=== PATIENT | female | born 1950 | race Caucasian/White ===

== ENCOUNTER 2017-09-14 11:02 | Inpatient (IN) | payer MEDICARE, MEDICAID ==
[2017-09-14] MEDS ORDERED: Albuterol 0.083% 2.5 MG/3 ML Neb Soln NEB ONE (11:37)
[2017-09-14] MEDS ORDERED: Acetaminophen 325 MG Tab PO ONE (11:37)
--- NOTE | 2017-09-14 11:39 | EDM.PDOC ---
ED HPI GENERAL MEDICAL PROBLEM - General Chief Complaint: Respiratory Problem Stated Complaint: FEVER/RESPIRATORY Time Seen by Provider: 09/14/17 11:25 Source of Information: Reports: Patient, Other ( clinic records. ) History Limitations: Reports: No Limitations - History of Present Illness INITIAL COMMENTS - FREE TEXT/NARRATIVE: pt arrived with a fever and sob. She has been ill since ur nite. Onset: Gradual, Other ( started thur nite. ) Duration: Hour(s):, Getting Worse Location: Reports: Chest, Other ( chest is congested and feels tight. ) Associated Symptoms: Reports: Cough, Fever/Chills, Shortness of Breath - Related Data Allergies Allergy/AdvReac Type Severity Reaction Status Date / Time No Known Allergies Allergy Verified 10/15/14 13:01 Home Meds: Home Meds Brimonidine/Timolol [Combigan 0.2%/0.5% Ophth Soln] 09/14/17 [History] Latanoprost [Latanoprost] 09/14/17 [History] Levothyroxine Sodium [Levoxyl] 09/14/17 [History] Past Medical History Endocrine/Metabolic History: Reports: Hypothyroidism Social & Family History - Tobacco Use Smoking Status *Q: Former Smoker Used Tobacco, but Quit: Yes Month Tobacco Last Used: september ED ROS GENERAL - Review of Systems Review Of Systems: See Below Constitutional: Reports: Fever, Chills, Malaise, Weakness, Decreased Appetite HEENT: Reports: No Symptoms Respiratory: Reports: Shortness of Breath, Wheezing, Cough, Other (02 sats at the clinic were 76) Cardiovascular: Reports: No Symptoms Endocrine: Reports: No Symptoms GI/Abdominal: Reports: No Symptoms : Reports: No Symptoms Musculoskeletal: Reports: No Symptoms Skin: Reports: No Symptoms ED EXAM, GENERAL - Physical Exam Exam: See Below Free Text/Narrative:: pt arrived with a history of low o2 sats at the clinic. She is coughing and feels tight in her chest. She is not raising much sputum. Exam Limited By: No Limitations General Appearance: Alert, Moderate Distress Ears: Normal TMs Nose: Normal Inspection Throat/Mouth: Normal Inspection Head: Atraumatic Neck: Normal Inspection Respiratory/Chest: Decreased Breath Sounds, Crackles, Wheezing Cardiovascular: Regular Rate, Rhythm GI/Abdominal: Soft, Non-Tender (Female) Exam: Deferred Rectal (Female) Exam: Deferred Back Exam: Normal Inspection Extremities: Normal Inspection Neurological: Alert, Oriented, Normal Cognition Psychiatric: Depressed Mood Skin Exam: Warm Course - Vital Signs Last Recorded V/S: Last Vital Signs Temp 37.8 C 09/14/17 11:19 Pulse 71 09/14/17 11:19 Resp 15 09/14/17 11:19 BP 159/56 H 09/14/17 11:19 Pulse Ox 93 L 09/14/17 11:19 - Orders/Labs/Meds Orders: Active Orders 24 hr Category Date Time Status RT Aerosol Therapy [RC] ASDIRECTED Care 09/14/17 11:38 Active Chest 2V [CR] Stat Exams 09/14/17 11:35 Ordered COMPREHENSIVE METABOLIC PN,CMP [CHEM] Urgent Lab 09/14/17 11:26 Received LACTIC ACID [CHEM] Stat Lab 09/14/17 11:44 Ordered TSH ULTRASENSITIVE [CHEM] Stat Lab 09/14/17 11:27 Ordered Labs: Laboratory Tests 09/14/17 Range/Units 11:26 WBC 10.9 (4.5-11.0) K/uL RBC 4.91 (3.30-5.50) M/uL Hgb 14.6 (12.0-15.0) g/dL Hct 44.6 (36.0-48.0) % MCV 91 (80-98) fL MCH 30 (27-31) pg MCHC 33 (32-36) % Plt Count 188 (150-400) K/uL Neut % (Auto) 87 H (36-66) % Lymph % (Auto) 4 L (24-44) % Potter % (Auto) 8 H (2-6) % Eos % (Auto) 0 L (2-4) % Baso % (Auto) 1 (0-1) % Meds: Medications Discontinued Medications Generic Name Dose Route Start Last Admin Trade Name Freq PRN Reason Stop Dose Admin Acetaminophen 650 mg 09/14/17 11:37 Tylenol PO 09/14/17 11:38 NOW ONE Albuterol 2.5 mg 09/14/17 11:37 Proventil Neb Soln NEB 09/14/17 11:38 ONETIME ONE Oseltamivir Phosphate 75 mg 09/14/17 11:51 Tamiflu PO 09/14/17 11:52 ONETIME ONE - Re-Assessments/Exams Free Text/Narrative Re-Assessment/Exam: 09/14/17 12:02 chest xray reveal a marked kyphosis nd she has a infiltate in the rt lower lung field. Sh has a fever. Her wbc is not markedly elevated. Her influ a is positive. Pt was given a albuterol neb and fluids were started at 999. Departure - Departure Time of Disposition: 12:05 Disposition: Admitted As Inpatient 68 Condition: Fair Clinical Impression: Right lower lobe pneumonia, Influenza A, Dehydration - Discharge Information Referrals: Candelaria Stanford PA [Primary Care Provider] - Forms: ED Department Discharge Care Plan Goals: admit to Dr louise. - My Orders Last 24 Hours: My Active Orders 09/14/17 11:26 COMPREHENSIVE METABOLIC PN,CMP [CHEM] Urgent 09/14/17 11:27 TSH ULTRASENSITIVE [CHEM] Stat 09/14/17 11:35 Chest 2V [CR] Stat 09/14/17 11:38 RT Aerosol Therapy [RC] ASDIRECTED 09/14/17 11:44 LACTIC ACID [CHEM] Stat - Assessment/Plan Last 24 Hours: My Active Orders 09/14/17 11:26 COMPREHENSIVE METABOLIC PN,CMP [CHEM] Urgent 09/14/17 11:27 TSH ULTRASENSITIVE [CHEM] Stat 09/14/17 11:35 Chest 2V [CR] Stat 09/14/17 11:38 RT Aerosol Therapy [RC] ASDIRECTED 09/14/17 11:44 LACTIC ACID [CHEM] Stat
[2017-09-14] MEDS ORDERED: Oseltamivir 75 MG Cap PO ONE (11:51)
[2017-09-14] MEDS ORDERED: Sodium Chloride 0.9% 1,000 ML IV SCH (12:00)
[2017-09-14] MEDS ORDERED: methylPREDNISolone Sodium Succinate 125 MG/2 ML SDV IVPUSH ONE (12:43)
--- NOTE | 2017-09-14 12:57 | PCM.HP ---
H&P History of Present Illness - General Date of Service: 09/14/17 Admit Problem/Dx: Admission Diagnosis/Problem Admission Diagnosis/Problem Influenza due to influenza A virus Source of Information: Patient, Family, Provider History Limitations: Reports: No Limitations - History of Present Illness Initial Comments - Free Text/Narative: Marisel presents to the emergency room today with 2 days of progressive cough, fever and shortness of breath. Cough has been mostly nonproductive. She is short of breath with even minimal activity at this time. She has not measured any fevers at home but has felt warm. She has a runny nose but no sore throat. She has diffuse myalgias and arthralgias. Some pleuritic type chest pain with coughing as well as some nausea but no vomiting. She has too sick contacts with very similar symptoms but they have not been tested for influenza. No orthopnea or lower extremity edema. She quit smoking 2 weeks ago. Appetite is decreased but fluid intake has been stable. Workup in the emergency room was initiated after she presented to the walk-in clinic, was found to have oxygen saturations in the mid 70s and was sent to the emergency room. She is found to have hypoxic respiratory failure as well as influenza. She will be admitted for further management. - Related Data Allergies/Adverse Reactions: Allergies Allergy/AdvReac Type Severity Reaction Status Date / Time No Known Allergies Allergy Verified 10/15/14 13:01 Home Medications: Home Meds Brimonidine/Timolol [Combigan 0.2%/0.5% Ophth Soln] 1 drop EYEBOTH BID 09/14/17 [History] Latanoprost [Latanoprost] 2 drop EYEBOTH BEDTIME 09/14/17 [History] Levothyroxine Sodium [Levoxyl] 1 tab PO DAILY 09/14/17 [History] Past Medical History Endocrine/Metabolic History: Reports: Hypothyroidism Social & Family History - Family History Cardiac: Reports: CAD (mother) Respiratory: Reports: COPD (father) - Tobacco Use Smoking Status *Q: Former Smoker Used Tobacco, but Quit: Yes Month Tobacco Last Used: september - Alcohol Use Alcohol Use History: No - Recreational Drug Use Recreational Drug Use: No Drug Use in Last 12 Months: No H&P Review of Systems - Review of Systems: Review Of Systems: See Below Free Text/Narrative: A complete 12 point review of systems was obtained. Pertinent positives and negatives are noted in the history of present illness. All other systems were reviewed and were negative except as noted. Exam - Exam Exam: See Below - Vital Signs Vital Signs: Last Vital Signs Temp 37.8 C 09/14/17 11:54 Pulse 71 09/14/17 11:19 Resp 15 09/14/17 11:19 BP 159/56 H 09/14/17 11:19 Pulse Ox 93 L 09/14/17 11:19 Weight: 57.153 kg - Exam Quality Assessment: Supplemental Oxygen General: Alert, Oriented, Cooperative, Mild Distress HEENT: Conjunctiva Clear. No: Mucosa Moist & [place] (dry), Scleral Icterus Neck: Supple, Trachea Midline. No: Lymphadenopathy, JVD Lungs: Rhonchi (diffuse rhonchi teresa right side). No: Normal Respiratory Effort (increased work of breathing), Wheezing Cardiovascular: Regular Rhythm, Tachycardia, Systolic Murmur GI/Abdominal Exam: Normal Bowel Sounds, Soft, Non-Tender, No Distention Back Exam: Normal Inspection, Full Range of Motion Extremities: No Pedal Edema. No: Increased Warmth Peripheral Pulses: 2+: Dorsalis Pedis (L), Dorsalis Pedis (R) Skin: Warm, Dry Neuro Extensive - Mental Status: Alert, Oriented x3, Nl Response to Commands Neuro Extensive - Motor, Sensory, Reflexes: CN II-XII Intact. No: Dysarthria, Abnormal Motor, Tremor Psychiatric: Alert, Normal Affect - Patient Data Lab Results Last 24 hrs: Laboratory Results - last 24 hr 09/14/17 09/14/17 09/14/17 Range/Units 11:26 11:26 11:27 WBC 10.9 (4.5-11.0) K/uL RBC 4.91 (3.30-5.50) M/uL Hgb 14.6 (12.0-15.0) g/dL Hct 44.6 (36.0-48.0) % MCV 91 (80-98) fL MCH 30 (27-31) pg MCHC 33 (32-36) % Plt Count 188 (150-400) K/uL Neut % (Auto) 87 H (36-66) % Lymph % (Auto) 4 L (24-44) % Bowie % (Auto) 8 H (2-6) % Eos % (Auto) 0 L (2-4) % Baso % (Auto) 1 (0-1) % Sodium 135 L (140-148) mmol/L Potassium 4.7 (3.6-5.2) mmol/L Chloride 99 L (100-108) mmol/L Carbon Dioxide 30 (21-32) mmol/L Anion Gap 10.7 (5.0-14.0) mmol/L BUN 10 (7-18) mg/dL Creatinine 0.7 (0.6-1.0) mg/dL Est Cr Clr Drug Dosing 66.28 mL/min Estimated GFR (MDRD) > 60 (>60) Glucose 120 H (74-106) mg/dL Lactic Acid (0.4-2.0) mmol/L Calcium 9.2 (8.5-10.1) mg/dL Total Bilirubin 0.2 (0.2-1.0) mg/dL AST 44 H (15-37) U/L ALT 56 (12-78) U/L Alkaline Phosphatase 114 (46-116) U/L Total Protein 7.2 (6.4-8.2) g/dL Albumin 3.8 (3.4-5.0) g/dL Globulin 3.4 (2.3-3.5) g/dL Albumin/Globulin Ratio 1.1 L (1.2-2.2) TSH, Ultra Sensitive 0.212 L (0.358-3.740) uIU/mL 09/14/17 Range/Units 11:44 WBC (4.5-11.0) K/uL RBC (3.30-5.50) M/uL Hgb (12.0-15.0) g/dL Hct (36.0-48.0) % MCV (80-98) fL MCH (27-31) pg MCHC (32-36) % Plt Count (150-400) K/uL Neut % (Auto) (36-66) % Lymph % (Auto) (24-44) % Bowie % (Auto) (2-6) % Eos % (Auto) (2-4) % Baso % (Auto) (0-1) % Sodium (140-148) mmol/L Potassium (3.6-5.2) mmol/L Chloride (100-108) mmol/L Carbon Dioxide (21-32) mmol/L Anion Gap (5.0-14.0) mmol/L BUN (7-18) mg/dL Creatinine (0.6-1.0) mg/dL Est Cr Clr Drug Dosing mL/min Estimated GFR (MDRD) (>60) Glucose (74-106) mg/dL Lactic Acid 1.3 (0.4-2.0) mmol/L Calcium (8.5-10.1) mg/dL Total Bilirubin (0.2-1.0) mg/dL AST (15-37) U/L ALT (12-78) U/L Alkaline Phosphatase (46-116) U/L Total Protein (6.4-8.2) g/dL Albumin (3.4-5.0) g/dL Globulin (2.3-3.5) g/dL Albumin/Globulin Ratio (1.2-2.2) TSH, Ultra Sensitive (0.358-3.740) uIU/mL Result Diagrams: 09/14/17 11:26 09/14/17 11:26 Ney Results Last 24 hrs: Microbiology 09/14/17 11:25 Influenza Type A Antigen Screen - Final Nasal Aspirate, Left Positive Influenza A Ag Influenza Type B Antigen Screen - Final NEGATIVE INFLUENZA B VIRUS AG Imaging Impressions Last 24 hrs: CXR - images personally reviewed - there is subtle infiltrate in the right lower lung. Mild hyperinflation. Heart size is normal. No mass or effusion. *Q Meaningful Use (ADM) - VTE *Q VTE Criteria *Q: - VTE Risk Assess *Q Each Risk Factor Represents 1 Point: Serious lung disease including pneumonia, Abnormal Pulmonary Function (COPD) Total Score 1 Point Risk Factors: 2 Each Risk Factor Represents 2 Points: Age 60 - 74 Years Total Score 2 Point Risk Factors: 2 Each Risk Factor Represents 3 Points: None Total Score 3 Point Risk Factors: 0 Each Risk Factor Represents 5 Points: None Total Score 5 Point Risk Factors: 0 Venous Thromboembolism Risk Factor Score *Q: 4 - Stroke *Q Stroke Criteria *Q: - AMI *Q AMI Criteria *Q: - Problem List (1) Acute respiratory failure with hypoxia SNOMED Code(s): 63131644 ICD Code: J96.01 - ACUTE RESPIRATORY FAILURE WITH HYPOXIA Status: Acute Current Visit: Yes (2) Acquired hypothyroidism SNOMED Code(s): 457957470 ICD Code: E03.9 - HYPOTHYROIDISM, UNSPECIFIED Status: Acute Current Visit : Yes (3) Influenza A SNOMED Code(s): 044773613 ICD Code: J10.1 - FLU DUE TO OTH IDENT INFLUENZA VIRUS W OTH RESP MANIFEST Status: Acute Current Visit: Yes Problem List Initiated/Reviewed/Updated: Yes Orders Last 24hrs: Active Orders 24 hr Category Date Time Status Patient Status Manage Transfer [TRANSFER] Routine ADT 09/14/17 12:44 Ordered RT Aerosol Therapy [RC] ASDIRECTED Care 09/14/17 11:38 Active Chest 2V [CR] Stat Exams 09/14/17 11:35 Taken CULTURE BLOOD [BC] Urgent Lab 09/14/17 12:05 Received CULTURE BLOOD [BC] Urgent Lab 09/14/17 12:10 Received Sodium Chloride 0.9% [Normal Saline] 1,000 ml Med 09/14/17 12:00 Active IV ASDIRECTED Blood Culture x2 Reflex Set [OM.PC] Urgent Oth 09/14/17 11:57 Ordered Resuscitation Status Routine Resus Stat 09/14/17 12:45 Ordered Medication Orders Sodium Chloride (Normal Saline) 1,000 mls @ 999 mls/hr IV ASDIRECTED RENETTA Last Admin: 09/14/17 12:14 Dose: 999 mls/hr Assessment/Plan Comment:: ASSESSMENT AND PLAN - Acute influenza A with hypoxic respiratory failure - former smoker, no diagnosis of COPD but she does have some hyperinflation noted on chest x-ray. She has cough, shortness of breath as well as myalgias and positive influenza testing. Chest x-ray does show a subtle right lung infiltrate but I suspect influenza is the only pathogen at this time given short duration of symptoms. -Tamiflu -Steroids -Nebs -Supplement oxygen -Symptomatic management -Sputum culture -Consider antibiotics if fever curve does not improve Acquired hypothyroidism - TSH is mildly decreased at this time. -Check free T4 -Continue supplement History of tobacco dependence - patient reports smoking approximately 1/4 - 1/2 half pack daily for 40 years. Currently his nicotine patch. -Continue nicotine patch Maintenance issues - - DVT prophylaxis - mechanical - GI prophylaxis - not indicated - Nutrition - regular diet - Doshi catheter - not indicated CODE STATUS - full code Admission justification - This patient will be admitted for inpatient services and is medically appropriate meeting medical necessity for inpatient admission as outlined in my documentation. I reasonably expect the patient will require inpatient services that span a period time over 2 midnights. I reasonably expect this patient to be discharged or transferred within 96 hours [facility]. Disposition - anticipate discharge home after the hospital stay Primary care physician - Cyndy Renner M.D.
[2017-09-14] MEDS ORDERED: Ondansetron 4 MG Tab.DIS PO PRN (13:36)
[2017-09-14] MEDS ORDERED: Polyethylene Glycol 3350 Powder 17 GM Packet PO PRN (13:36)
[2017-09-14] MEDS ORDERED: Codeine/guaiFENesin 100mg-10 MG/5 ML Syrup 10 ML Cup PO PRN (13:36)
[2017-09-14] MEDS: Sodium Chloride 0.9% 1,000 ML IV SCH (14:29)
[2017-09-14] MEDS: Albuterol/Ipratropium 3.0-0.5 MG/3 ML Neb Soln NEB SCH ×2 (15:10→20:07)
[2017-09-14] MEDS ORDERED: methylPREDNISolone Sodium Succinate 125 MG/2 ML SDV IVPUSH SCH (20:00)
[2017-09-14] MEDS: Acetaminophen 325 MG Tab PO PRN (20:06)
[2017-09-14] MEDS: Benzonatate 100 MG Cap PO PRN (20:07)
[2017-09-14] MEDS: Oseltamivir 75 MG Cap PO SCH (20:08)
[2017-09-14] MEDS: Brimonidine 0.2% Ophth Soln 5 ML Bottle EYEBOTH SCH (20:08)
[2017-09-14] MEDS: Timolol Maleate 0.5% Ophth Soln 5 ML Bottle EYEBOTH SCH (20:08)
[2017-09-14] MEDS: Latanoprost 0.005% Ophth Soln 2.5 ML Bottle EYEBOTH SCH (20:09)
[2017-09-15] MEDS: Sodium Chloride 0.9% 1,000 ML IV SCH (03:13)
[2017-09-15] MEDS: Albuterol/Ipratropium 3.0-0.5 MG/3 ML Neb Soln NEB SCH ×4 (07:30→21:11)
[2017-09-15] MEDS: Levothyroxine 100 MCG Tab PO SCH ×2 (07:57→10:19)
--- NOTE | 2017-09-15 10:03 | PCM.PN ---
- General Info Date of Service: 09/15/17 Functional Status: Reports: Pain Controlled, Tolerating Diet - Review of Systems General: Reports: Fever, Weakness Pulmonary: Reports: Shortness of Breath, Cough Systems Review Comment:: No acute events overnight. Feeling a little better today but still has diffuse myalgias and harsh cough. Still requiring 3 L of supplemental oxygen but wheezing has improved some. Low-grade fevers overnight. White blood cell count is up a little from yesterday. No complaints of chest pain or nausea. - Patient Data Vitals - Most Recent: Last Vital Signs Temp 37.3 C 09/15/17 07:14 Pulse 68 09/15/17 07:30 Resp 18 09/15/17 07:14 BP 124/53 L 09/15/17 07:14 Pulse Ox 94 L 09/15/17 07:14 Weight - Most Recent: 57.153 kg I&O - Last 24 Hours: Intake & Output 09/14/17 09/15/17 09/15/17 22:59 06:59 14:59 Intake Total 332 1190 Output Total 700 Balance -368 1190 Lab Results Last 24 Hours: Laboratory Results - last 24 hr 09/14/17 09/15/17 09/15/17 Range/Units 15:20 05:20 05:20 WBC 14.1 H (4.5-11.0) K/uL RBC 4.40 (3.30-5.50) M/uL Hgb 12.7 (12.0-15.0) g/dL Hct 40.4 (36.0-48.0) % MCV 92 (80-98) fL MCH 29 (27-31) pg MCHC 31 L (32-36) % Plt Count 180 (150-400) K/uL Sodium 144 (140-148) mmol/L Potassium 4.9 (3.6-5.2) mmol/L Chloride 110 H (100-108) mmol/L Carbon Dioxide 30 (21-32) mmol/L Anion Gap 8.9 (5.0-14.0) mmol/L BUN 11 (7-18) mg/dL Creatinine 0.6 (0.6-1.0) mg/dL Est Cr Clr Drug Dosing 77.33 mL/min Estimated GFR (MDRD) > 60 (>60) Glucose 137 H (74-106) mg/dL Calcium 8.9 (8.5-10.1) mg/dL Free T4 1.29 (0.76-1.46) ng/dL Med Orders - Current: Current Medications Acetaminophen (Tylenol) 650 mg PO Q4H PRN PRN Reason: Pain (Mild 1-3)/fever Last Admin: 09/14/17 20:06 Dose: 650 mg Albuterol (Proventil Neb Soln) 2.5 mg NEB Q4H PRN PRN Reason: Shortness Of Breath/wheezing Albuterol/Ipratropium (Duoneb 3.0-0.5 Mg/3 Ml) 3 ml NEB QIDRT [facility] Last Admin: 09/15/17 07:30 Dose: 3 ml Benzonatate (Tessalon Perles) 100 mg PO TID PRN PRN Reason: Cough Last Admin: 09/14/17 20:07 Dose: 100 mg Guaifenesin/Codeine Phosphate (Robitussin Ac) 10 ml PO Q4H PRN PRN Reason: Cough Sodium Chloride (Normal Saline) 1,000 mls @ 75 mls/hr IV ASDIRECTED [facility] Last Admin: 09/15/17 03:13 Dose: 75 mls/hr Ibuprofen (Motrin) 600 mg PO Q6H PRN PRN Reason: Pain/Fever Latanoprost (Xalatan 0.005% Ophth Soln) 0 ml EYEBOTH BEDTIME [facility] Last Admin: 09/14/17 20:09 Dose: 1 drop Levothyroxine Sodium (Synthroid) 100 mcg PO ACBREAKFAST [facility] Last Admin: 09/15/17 07:57 Dose: 100 mcg Nicotine (Habitrol) 14 mg TRDERM DAILY [facility] Ondansetron HCl (Zofran Odt) 4 mg PO Q6H PRN PRN Reason: Nausea able to take PO Oseltamivir Phosphate (Tamiflu) 75 mg PO BID [facility] Stop: 09/18/17 21:01 Last Admin: 09/14/17 20:08 Dose: 75 mg Polyethylene Glycol (Miralax) 17 gm PO DAILY PRN PRN Reason: Constipation [facility]) [facility] Discontinued Medications Acetaminophen (Tylenol) 650 mg PO NOW ONE Stop: 09/14/17 11:38 Last Admin: 09/14/17 11:54 Dose: 650 mg Albuterol (Proventil Neb Soln) 2.5 mg NEB ONETIME ONE Stop: 09/14/17 11:38 Last Admin: 09/14/17 11:54 Dose: 2.5 mg Brimonidine Tartrate (Alphagan 0.2% Ophth Soln) 0 ml EYEBOTH BID [facility] Last Admin: 09/14/17 20:08 Dose: Not Given Sodium Chloride (Normal Saline) 1,000 mls @ 999 mls/hr IV ASDIRECTED [facility] Last Admin: 09/14/17 12:14 Dose: 999 mls/hr Methylprednisolone Sodium Succinate (Solu-Medrol) 125 mg IVPUSH ONETIME ONE Stop: 09/14/17 12:44 Last Admin: 09/14/17 12:57 Dose: 125 mg Methylprednisolone Sodium Succinate (Solu-Medrol) 62.5 mg IVPUSH Q8H [facility] Stop: 09/14/17 20:01 Last Admin: 09/14/17 20:09 Dose: 62.5 mg Oseltamivir Phosphate (Tamiflu) 75 mg PO ONETIME ONE Stop: 09/14/17 11:52 Last Admin: 09/14/17 11:56 Dose: 75 mg Timolol Maleate (Timoptic 0.5% Ophth Soln) 0 ml EYEBOTH BID [facility] Last Admin: 09/14/17 20:08 Dose: Not Given - Exam Quality Assessment: Supplemental Oxygen General: Alert, Oriented, Cooperative, No Acute Distress Neck: Supple Lungs: Normal Respiratory Effort, Crackles (diffuse both upper and lower lung tapia ). No: Wheezing GI/Abdominal Exam: Soft, No Distention Extremities: No Pedal Edema Psy/Mental Status: Alert, Normal Affect - Problem List & Annotations (1) Acute respiratory failure with hypoxia SNOMED Code(s): 30625703 Code(s): J96.01 - ACUTE RESPIRATORY FAILURE WITH HYPOXIA Status: Acute Current Visit: Yes (2) Acquired hypothyroidism SNOMED Code(s): 653088137 Code(s): E03.9 - HYPOTHYROIDISM, UNSPECIFIED Status: Acute Current Visit : Yes (3) Influenza A SNOMED Code(s): 623455720 Code(s): J10.1 - FLU DUE TO OTH IDENT INFLUENZA VIRUS W OTH RESP MANIFEST Status: Acute Current Visit: Yes - Problem List Review Problem List Initiated/Reviewed/Updated: Yes - My Orders Last 24 Hours: My Active Orders 09/14/17 12:45 Resuscitation Status Routine 09/14/17 13:36 Patient Status [ADT] Routine Notify Provider Vital Signs [RC] ASDIRECTED Oxygen Therapy [RC] PRN RT Aerosol Therapy [RC] ASDIRECTED Up ad Tisha [RC] ASDIRECTED VTE/DVT Education [RC] Per Unit Routine Vital Signs [RC] Q4H CULTURE RESPIRATORY + SMEAR [RM] Routine Acetaminophen [Tylenol] 650 mg PO Q4H PRN Albuterol [Proventil Neb Soln] 2.5 mg NEB Q4H PRN Benzonatate [Tessalon Perles] 100 mg PO TID PRN Codeine/guaiFENesin [Robitussin AC] 10 ml PO Q4H PRN Ibuprofen [Motrin] 600 mg PO Q6H PRN Ondansetron [Zofran ODT] 4 mg PO Q6H PRN Polyethylene Glycol 3350 [MiraLAX] 17 gm PO DAILY PRN Sodium Chloride 0.9% [Normal Saline] 1,000 ml IV ASDIRECTED Sequential Compression Device [OM.PC] Per Unit Routine 09/14/17 16:00 Albuterol/Ipratropium [DuoNeb 3.0-0.5 MG/3 ML] 3 ml NEB QIDRT 09/14/17 21:00 Latanoprost [Xalatan 0.005% Ophth Soln] 0 ml EYEBOTH BEDTIME Oseltamivir [Tamiflu] 75 mg PO BID 09/14/17 Dinner Regular Diet [DIET] 09/15/17 09:00 Levothyroxine [Synthroid] 100 mcg PO ACBREAKFAST Nicotine [Habitrol] 14 mg TRDERM DAILY 09/15/17 10:01 Convert IV to Saline Lock [OM.PC] Routine 09/15/17 20:00 predniSONE 20 mg PO BIDAC 09/16/17 05:00 CBC W/O DIFF,HEMOGRAM [HEME] Timed (1) - Plan Plan:: ASSESSMENT AND PLAN - Acute influenza A with hypoxic respiratory failure - former smoker, no diagnosis of COPD but she does have some hyperinflation noted on chest x-ray. Still significant symptoms and ongoing supplemental oxygen requirement. Fever curve has improved since admission. Right lung infiltrate was noted at the time of admission but I suspect this is related to influenza. -Tamiflu -Steroids -Nebs -Supplement oxygen -Symptomatic management -Sputum culture if able -Consider antibiotics if fever curve does not improve Acquired hypothyroidism - TSH is mildly decreased at this time but T4 is normal. -Continue supplement History of tobacco dependence - patient reports smoking approximately 1/4 - 1/2 half pack daily for 40 years. Currently using nicotine patch. -Continue nicotine patch Maintenance issues - - DVT prophylaxis - mechanical - GI prophylaxis - not indicated - Nutrition - regular diet Disposition - anticipate discharge home after the hospital stay Primary care physician - Cyndy Renner M.D.
[2017-09-15] MEDS: Oseltamivir 75 MG Cap PO SCH ×2 (10:19→21:11)
[2017-09-15] MEDS: Nicotine 14 MG/24 Hr Patch TRDERM SCH (10:19)
[2017-09-15] MEDS: Benzonatate 100 MG Cap PO PRN ×2 (10:22→19:26)
[2017-09-15] MEDS: Ibuprofen 600 MG Tab PO PRN (10:22)
[2017-09-15] MEDS: Brimonidine 0.2% Ophth Soln 5 ML Bottle EYEBOTH SCH (10:56)
[2017-09-15] MEDS: Timolol Maleate 0.5% Ophth Soln 5 ML Bottle EYEBOTH SCH (10:56)
[2017-09-15] MEDS: Acetaminophen 325 MG Tab PO PRN (19:30)
[2017-09-15] MEDS: predniSONE 20 MG Tab PO SCH (21:11)
[2017-09-15] MEDS: Latanoprost 0.005% Ophth Soln 2.5 ML Bottle EYEBOTH SCH (21:11)
[2017-09-15] MEDS: COMBIGAN EYEBOTH SCH (23:51)
[2017-09-15] MEDS: OPTH EYEBOTH SCH (23:51)
[2017-09-16] MEDS: Benzonatate 100 MG Cap PO PRN ×4 (03:04→21:22)
[2017-09-16] MEDS: Albuterol 0.083% 2.5 MG/3 ML Neb Soln NEB PRN (03:04)
[2017-09-16] MEDS: Albuterol/Ipratropium 3.0-0.5 MG/3 ML Neb Soln NEB SCH ×4 (07:29→20:50)
[2017-09-16] MEDS: Oseltamivir 75 MG Cap PO SCH ×2 (08:17→20:50)
[2017-09-16] MEDS: predniSONE 20 MG Tab PO SCH ×2 (08:18→17:43)
[2017-09-16] MEDS: Nicotine 14 MG/24 Hr Patch TRDERM SCH (08:19)
[2017-09-16] MEDS: Levothyroxine 100 MCG Tab PO SCH (08:24)
[2017-09-16] MEDS: COMBIGAN EYEBOTH SCH ×2 (08:26→20:52)
[2017-09-16] MEDS: OPTH EYEBOTH SCH ×2 (08:26→20:52)
[2017-09-16] MEDS: Ibuprofen 600 MG Tab PO PRN ×2 (09:22→15:32)
--- NOTE | 2017-09-16 10:00 | CR ---
CHEST, 2 VIEW Clinical history: Shortness of breath Comparison: None Findings: Patient has a moderate thoracic dextroscoliosis. Heart and pulmonary vasculature appear nor mal. No infiltrate effusion or pneumothorax is seen. Lungs are hyperaerated. There is a moderate left first rib deformity related to the scoliosis. Impression: No acute cardiopulmonary process Hyperaeration
[2017-09-16] MEDS: Acetaminophen 325 MG Tab PO PRN (11:50)
--- NOTE | 2017-09-16 14:01 | PCM.PN ---
- General Info Date of Service: 09/16/17 Subjective Update: Ms. Nunez is a 67-year-old woman admitted through the emergency department with weakness and cough and shortness of breath secondary to influenza A. She is noted modest improvement since admission, still continues to have low-grade temperature elevations, white blood cell count from this morning was normal. Vital signs have otherwise been stable, continues to require supplemental oxygen to maintain adequate oxygenation. Functional Status: Reports: Tolerating Diet, Urinating - Review of Systems General: Reports: Fever, Weakness. Denies: Chills Pulmonary: Reports: Shortness of Breath, Cough, Wheezing. Denies: Pleuritic Chest Pain, Sputum, Hemoptysis Cardiovascular: Reports: Dyspnea on Exertion. Denies: Chest Pain, Palpitations , Orthopnea, PND, Edema, Lightheadedness Gastrointestinal: Reports: No Symptoms - Patient Data Vitals - Most Recent: Last Vital Signs Temp 99.0 F 09/16/17 12:00 Pulse 67 09/16/17 12:00 Resp 18 09/16/17 12:00 BP 103/57 L 09/16/17 12:00 Pulse Ox 91 L 09/16/17 12:00 Weight - Most Recent: 126 lb 0.013 oz I&O - Last 24 Hours: Intake & Output 09/15/17 09/16/17 09/16/17 22:59 06:59 14:59 Intake Total 1400 840 Balance 1400 840 Lab Results Last 24 Hours: Laboratory Results - last 24 hr 09/16/17 Range/Units 05:00 WBC 10.5 (4.5-11.0) K/uL RBC 4.48 (3.30-5.50) M/uL Hgb 13.0 (12.0-15.0) g/dL Hct 41.6 (36.0-48.0) % MCV 93 (80-98) fL MCH 29 (27-31) pg MCHC 31 L (32-36) % Plt Count 186 (150-400) K/uL Med Orders - Current: Current Medications Acetaminophen (Tylenol) 650 mg PO Q4H PRN PRN Reason: Pain (Mild 1-3)/fever Last Admin: 09/16/17 11:50 Dose: 650 mg Albuterol (Proventil Neb Soln) 2.5 mg NEB Q4H PRN PRN Reason: Shortness Of Breath/wheezing Last Admin: 09/16/17 03:04 Dose: 2.5 mg Albuterol/Ipratropium (Duoneb 3.0-0.5 Mg/3 Ml) 3 ml NEB QIDRT [facility] Last Admin: 09/16/17 11:03 Dose: 3 ml Benzonatate (Tessalon Perles) 100 mg PO TID PRN PRN Reason: Cough Last Admin: 09/16/17 09:22 Dose: 100 mg Guaifenesin/Codeine Phosphate (Robitussin Ac) 10 ml PO Q4H PRN PRN Reason: Cough Ibuprofen (Motrin) 600 mg PO Q6H PRN PRN Reason: Pain/Fever Last Admin: 09/16/17 09:22 Dose: 600 mg Latanoprost (Xalatan 0.005% Ophth Soln) 0 ml EYEBOTH BEDTIME [facility] Last Admin: 09/15/17 21:11 Dose: 1 drop Levothyroxine Sodium (Synthroid) 100 mcg PO ACBREAKFAST [facility] Last Admin: 09/16/17 08:24 Dose: 100 mcg Nicotine (Habitrol) 14 mg TRDERM DAILY [facility] Last Admin: 09/16/17 08:19 Dose: Not Given Combigan 0.2/0.5% (OpthPt Own Med) 1 each EYEBOTH BID [facility] Last Admin: 09/16/17 08:26 Dose: 1 each Ondansetron HCl (Zofran Odt) 4 mg PO Q6H PRN PRN Reason: Nausea able to take PO Oseltamivir Phosphate (Tamiflu) 75 mg PO BID [facility] Stop: 09/18/17 21:01 Last Admin: 09/16/17 08:17 Dose: 75 mg Polyethylene Glycol (Miralax) 17 gm PO DAILY PRN PRN Reason: Constipation Prednisone (Prednisone) 20 mg PO BIDAC [facility] Last Admin: 09/16/17 08:18 Dose: 20 mg Discontinued Medications Acetaminophen (Tylenol) 650 mg PO NOW ONE Stop: 09/14/17 11:38 Last Admin: 09/14/17 11:54 Dose: 650 mg Albuterol (Proventil Neb Soln) 2.5 mg NEB ONETIME ONE Stop: 09/14/17 11:38 Last Admin: 09/14/17 11:54 Dose: 2.5 mg Brimonidine Tartrate (Alphagan 0.2% Ophth Soln) 0 ml EYEBOTH BID [facility] Last Admin: 09/15/17 10:56 Dose: Not Given Sodium Chloride (Normal Saline) 1,000 mls @ 999 mls/hr IV ASDIRECTED [facility] Last Admin: 09/14/17 12:14 Dose: 999 mls/hr Sodium Chloride (Normal Saline) 1,000 mls @ 75 mls/hr IV ASDIRECTED [facility] Last Admin: 09/15/17 03:13 Dose: 75 mls/hr Methylprednisolone Sodium Succinate (Solu-Medrol) 125 mg IVPUSH ONETIME ONE Stop: 09/14/17 12:44 Last Admin: 09/14/17 12:57 Dose: 125 mg Methylprednisolone Sodium Succinate (Solu-Medrol) 62.5 mg IVPUSH Q8H [facility] Stop: 09/14/17 20:01 Last Admin: 09/14/17 20:09 Dose: 62.5 mg Oseltamivir Phosphate (Tamiflu) 75 mg PO ONETIME ONE Stop: 09/14/17 11:52 Last Admin: 09/14/17 11:56 Dose: 75 mg Timolol Maleate (Timoptic 0.5% Ophth Soln) 0 ml EYEBOTH BID [facility] Last Admin: 09/15/17 10:56 Dose: Not Given - Exam Quality Assessment: Supplemental Oxygen, DVT Prophylaxis General: Alert, Oriented, Cooperative, Mild Distress Lungs: Decreased Breath Sounds, Rhonchi, Wheezing. No: Crackles, Rales, Rub, Stridor Cardiovascular: Regular Rate, Regular Rhythm, No Murmurs GI/Abdominal Exam: Soft, Non-Tender, No Organomegaly, No Distention Extremities: Non-Tender, No Pedal Edema Skin: Warm, Dry, Intact - Problem List Review Problem List Initiated/Reviewed/Updated: Yes - Plan Plan:: ASSESSMENT AND PLAN - Acute influenza A with hypoxic respiratory failure - former smoker, no diagnosis of COPD but she does have some hyperinflation noted on chest x-ray. Modestly improved since admission, persistent shortness of breath and cough. Continues to require supplemental oxygen. -Tamiflu -Steroids -Nebs -Supplement oxygen -Symptomatic management -Sputum culture if able Acquired hypothyroidism - TSH is mildly decreased at this time but T4 is normal. -Continue supplement History of tobacco dependence - patient reports smoking approximately 1/4 - 1/2 half pack daily for 40 years. Currently using nicotine patch. -Continue nicotine patch Maintenance issues - - DVT prophylaxis - mechanical - GI prophylaxis - not indicated - Nutrition - regular diet Disposition - anticipate discharge home after the hospital stay Primary care physician - Cyndy HENAO
[2017-09-16] MEDS: Latanoprost 0.005% Ophth Soln 2.5 ML Bottle EYEBOTH SCH (20:50)
[2017-09-17] MEDS: Benzonatate 100 MG Cap PO PRN ×2 (05:16→16:00)
[2017-09-17] MEDS: Albuterol/Ipratropium 3.0-0.5 MG/3 ML Neb Soln NEB SCH ×4 (07:30→20:44)
[2017-09-17] MEDS: Acetaminophen 325 MG Tab PO PRN (08:37)
[2017-09-17] MEDS: predniSONE 20 MG Tab PO SCH ×2 (08:39→15:56)
[2017-09-17] MEDS: Levothyroxine 100 MCG Tab PO SCH (08:39)
[2017-09-17] MEDS: Nicotine 14 MG/24 Hr Patch TRDERM SCH (08:39)
[2017-09-17] MEDS: COMBIGAN EYEBOTH SCH ×2 (08:41→20:46)
[2017-09-17] MEDS: Oseltamivir 75 MG Cap PO SCH ×2 (08:41→20:46)
[2017-09-17] MEDS: OPTH EYEBOTH SCH ×2 (08:41→20:46)
--- NOTE | 2017-09-17 16:39 | PCM.PN ---
- General Info Date of Service: 09/17/17 Subjective Update: Ms. Nunez is been stable over the past 24 hours, vital signs have been good and she has remained afebrile. Continues to feel short of breath with exertion and require supplemental oxygen to maintain adequate oxygenation. Cough has been more loose and she has been able to be more active. Appetite does seem to be slowly improving. - Review of Systems General: Reports: Weakness. Denies: Fever, Chills Pulmonary: Reports: Shortness of Breath, Cough, Sputum. Denies: Hemoptysis, Wheezing Cardiovascular: Reports: Dyspnea on Exertion. Denies: Chest Pain, Palpitations , Orthopnea, PND, Edema Gastrointestinal: Reports: No Symptoms - Patient Data Vitals - Most Recent: Last Vital Signs Temp 98.9 F 09/17/17 15:00 Pulse 77 09/17/17 15:00 Resp 18 09/17/17 15:00 BP 112/61 09/17/17 15:00 Pulse Ox 91 L 09/17/17 15:00 Weight - Most Recent: 126 lb 0.013 oz I&O - Last 24 Hours: Intake & Output 09/17/17 09/17/17 09/17/17 06:59 14:59 22:59 Intake Total 500 Balance 500 Med Orders - Current: Current Medications Acetaminophen (Tylenol) 650 mg PO Q4H PRN PRN Reason: Pain (Mild 1-3)/fever Last Admin: 09/17/17 08:37 Dose: 650 mg Albuterol (Proventil Neb Soln) 2.5 mg NEB Q4H PRN PRN Reason: Shortness Of Breath/wheezing Last Admin: 09/16/17 03:04 Dose: 2.5 mg Albuterol/Ipratropium (Duoneb 3.0-0.5 Mg/3 Ml) 3 ml NEB QIDRT [facility] Last Admin: 09/17/17 14:42 Dose: 3 ml Benzonatate (Tessalon Perles) 100 mg PO TID PRN PRN Reason: Cough Last Admin: 09/17/17 16:00 Dose: 100 mg Guaifenesin/Codeine Phosphate (Robitussin Ac) 10 ml PO Q4H PRN PRN Reason: Cough Ibuprofen (Motrin) 600 mg PO Q6H PRN PRN Reason: Pain/Fever Last Admin: 09/16/17 15:32 Dose: 600 mg Latanoprost (Xalatan 0.005% Ophth Soln) 0 ml EYEBOTH BEDTIME [facility] Last Admin: 09/16/17 20:50 Dose: 1 drop Levothyroxine Sodium (Synthroid) 100 mcg PO ACBREAKFAST [facility] Last Admin: 09/17/17 08:39 Dose: 100 mcg Nicotine (Habitrol) 14 mg TRDERM DAILY [facility] Last Admin: 09/17/17 08:39 Dose: Not Given Combigan 0.2/0.5% (OpthPt Own Med) 1 each EYEBOTH BID [facility] Last Admin: 09/17/17 08:41 Dose: 1 each Ondansetron HCl (Zofran Odt) 4 mg PO Q6H PRN PRN Reason: Nausea able to take PO Oseltamivir Phosphate (Tamiflu) 75 mg PO BID [facility] Stop: 09/18/17 21:01 Last Admin: 09/17/17 08:41 Dose: 75 mg Polyethylene Glycol (Miralax) 17 gm PO DAILY PRN PRN Reason: Constipation Prednisone (Prednisone) 20 mg PO BIDAC [facility] Last Admin: 09/17/17 15:56 Dose: 20 mg Discontinued Medications Acetaminophen (Tylenol) 650 mg PO NOW ONE Stop: 09/14/17 11:38 Last Admin: 09/14/17 11:54 Dose: 650 mg Albuterol (Proventil Neb Soln) 2.5 mg NEB ONETIME ONE Stop: 09/14/17 11:38 Last Admin: 09/14/17 11:54 Dose: 2.5 mg Brimonidine Tartrate (Alphagan 0.2% Ophth Soln) 0 ml EYEBOTH BID [facility] Last Admin: 09/15/17 10:56 Dose: Not Given Sodium Chloride (Normal Saline) 1,000 mls @ 999 mls/hr IV ASDIRECTED [facility] Last Admin: 09/14/17 12:14 Dose: 999 mls/hr Sodium Chloride (Normal Saline) 1,000 mls @ 75 mls/hr IV ASDIRECTED [facility] Last Admin: 09/15/17 03:13 Dose: 75 mls/hr Methylprednisolone Sodium Succinate (Solu-Medrol) 125 mg IVPUSH ONETIME ONE Stop: 09/14/17 12:44 Last Admin: 09/14/17 12:57 Dose: 125 mg Methylprednisolone Sodium Succinate (Solu-Medrol) 62.5 mg IVPUSH Q8H [facility] Stop: 09/14/17 20:01 Last Admin: 09/14/17 20:09 Dose: 62.5 mg Oseltamivir Phosphate (Tamiflu) 75 mg PO ONETIME ONE Stop: 09/14/17 11:52 Last Admin: 09/14/17 11:56 Dose: 75 mg Timolol Maleate (Timoptic 0.5% Ophth Soln) 0 ml EYEBOTH BID [facility] Last Admin: 09/15/17 10:56 Dose: Not Given - Exam Quality Assessment: Supplemental Oxygen, DVT Prophylaxis General: Alert, Oriented, Cooperative, Mild Distress Lungs: Normal Respiratory Effort, Rhonchi, Wheezing. No: Rales Cardiovascular: Regular Rate, Regular Rhythm, No Murmurs GI/Abdominal Exam: Soft, Non-Tender, No Organomegaly, No Distention Extremities: Non-Tender, No Pedal Edema Skin: Warm, Dry, Intact - Problem List Review Problem List Initiated/Reviewed/Updated: Yes - Plan Plan:: ASSESSMENT AND PLAN - Acute influenza A with hypoxic respiratory failure - former smoker, no diagnosis of COPD but she does have some hyperinflation noted on chest x-ray. Further improvement over the past 24 hours continues to require supplemental oxygen to maintain adequate saturations. -Tamiflu -Nebs -Supplement oxygen -Symptomatic management -Sputum culture if able Acquired hypothyroidism - TSH is mildly decreased at this time but T4 is normal. -Continue supplement History of tobacco dependence - patient reports smoking approximately 1/4 - 1/2 half pack daily for 40 years. Currently using nicotine patch. -Continue nicotine patch Maintenance issues - - DVT prophylaxis - mechanical - GI prophylaxis - not indicated - Nutrition - regular diet Disposition - anticipate discharge home after the hospital stay Primary care physician - Cyndy HENAO
[2017-09-17] MEDS: Latanoprost 0.005% Ophth Soln 2.5 ML Bottle EYEBOTH SCH (20:46)
[2017-09-17] MEDS: Ibuprofen 600 MG Tab PO PRN (22:15)
[2017-09-18] MEDS: Levothyroxine 100 MCG Tab PO SCH (07:28)
[2017-09-18] MEDS: Albuterol/Ipratropium 3.0-0.5 MG/3 ML Neb Soln NEB SCH ×4 (07:39→20:11)
[2017-09-18] MEDS: Nicotine 14 MG/24 Hr Patch TRDERM SCH ×2 (08:27→13:35)
[2017-09-18] MEDS: Oseltamivir 75 MG Cap PO SCH ×2 (08:29→20:11)
[2017-09-18] MEDS: OPTH EYEBOTH SCH ×2 (08:29→20:09)
[2017-09-18] MEDS: COMBIGAN EYEBOTH SCH ×2 (08:29→20:09)
--- NOTE | 2017-09-18 12:12 | PCM.PN ---
- General Info Date of Service: 09/18/17 Subjective Update: Ms. Nunez is experienced further improvement since yesterday, vital signs have been stable and she has remained afebrile. She continues to require supplemental oxygen, to maintain adequate oxygenation. Continued intermittent cough minimally productive. Functional Status: Reports: Tolerating Diet, Ambulating - Review of Systems General: Reports: Weakness. Denies: Fever, Chills Pulmonary: Reports: Shortness of Breath, Cough. Denies: Pleuritic Chest Pain, Sputum, Hemoptysis, Wheezing Cardiovascular: Reports: Dyspnea on Exertion. Denies: Chest Pain, Palpitations , Orthopnea, PND, Edema Gastrointestinal: Reports: No Symptoms - Patient Data Vitals - Most Recent: Last Vital Signs Temp 98.8 F 09/18/17 11:00 Pulse 76 09/18/17 11:00 Resp 18 09/18/17 11:00 BP 115/54 L 09/18/17 11:00 Pulse Ox 82 L 09/18/17 11:53 Weight - Most Recent: 126 lb 0.013 oz Med Orders - Current: Current Medications Acetaminophen (Tylenol) 650 mg PO Q4H PRN PRN Reason: Pain (Mild 1-3)/fever Last Admin: 09/17/17 08:37 Dose: 650 mg Albuterol (Proventil Neb Soln) 2.5 mg NEB Q4H PRN PRN Reason: Shortness Of Breath/wheezing Last Admin: 09/16/17 03:04 Dose: 2.5 mg Albuterol/Ipratropium (Duoneb 3.0-0.5 Mg/3 Ml) 3 ml NEB QIDRT [facility] Last Admin: 09/18/17 10:56 Dose: 3 ml Benzonatate (Tessalon Perles) 100 mg PO TID PRN PRN Reason: Cough Last Admin: 09/17/17 16:00 Dose: 100 mg Guaifenesin/Codeine Phosphate (Robitussin Ac) 10 ml PO Q4H PRN PRN Reason: Cough Ibuprofen (Motrin) 600 mg PO Q6H PRN PRN Reason: Pain/Fever Last Admin: 09/17/17 22:15 Dose: 600 mg Latanoprost (Xalatan 0.005% Ophth Soln) 0 ml EYEBOTH BEDTIME [facility] Last Admin: 09/17/17 20:46 Dose: 1 drop Levothyroxine Sodium (Synthroid) 100 mcg PO ACBREAKFAST [facility] Last Admin: 09/18/17 07:28 Dose: 100 mcg Nicotine (Habitrol) 14 mg TRDERM DAILY [facility] Last Admin: 09/18/17 08:27 Dose: Not Given Combigan 0.2/0.5% (OpthPt Own Med) 1 each EYEBOTH BID [facility] Last Admin: 09/18/17 08:29 Dose: 1 each Ondansetron HCl (Zofran Odt) 4 mg PO Q6H PRN PRN Reason: Nausea able to take PO Oseltamivir Phosphate (Tamiflu) 75 mg PO BID [facility] Stop: 09/18/17 21:01 Last Admin: 09/18/17 08:29 Dose: 75 mg Polyethylene Glycol (Miralax) 17 gm PO DAILY PRN PRN Reason: Constipation Discontinued Medications Acetaminophen (Tylenol) 650 mg PO NOW ONE Stop: 09/14/17 11:38 Last Admin: 09/14/17 11:54 Dose: 650 mg Albuterol (Proventil Neb Soln) 2.5 mg NEB ONETIME ONE Stop: 09/14/17 11:38 Last Admin: 09/14/17 11:54 Dose: 2.5 mg Brimonidine Tartrate (Alphagan 0.2% Ophth Soln) 0 ml EYEBOTH BID [facility] Last Admin: 09/15/17 10:56 Dose: Not Given Sodium Chloride (Normal Saline) 1,000 mls @ 999 mls/hr IV ASDIRECTED [facility] Last Admin: 09/14/17 12:14 Dose: 999 mls/hr Sodium Chloride (Normal Saline) 1,000 mls @ 75 mls/hr IV ASDIRECTED [facility] Last Admin: 09/15/17 03:13 Dose: 75 mls/hr Methylprednisolone Sodium Succinate (Solu-Medrol) 125 mg IVPUSH ONETIME ONE Stop: 09/14/17 12:44 Last Admin: 09/14/17 12:57 Dose: 125 mg Methylprednisolone Sodium Succinate (Solu-Medrol) 62.5 mg IVPUSH Q8H [facility] Stop: 09/14/17 20:01 Last Admin: 09/14/17 20:09 Dose: 62.5 mg Oseltamivir Phosphate (Tamiflu) 75 mg PO ONETIME ONE Stop: 09/14/17 11:52 Last Admin: 09/14/17 11:56 Dose: 75 mg Prednisone (Prednisone) 20 mg PO BIDAC [facility] Last Admin: 09/17/17 15:56 Dose: 20 mg Timolol Maleate (Timoptic 0.5% Ophth Soln) 0 ml EYEBOTH BID [facility] Last Admin: 09/15/17 10:56 Dose: Not Given - Exam Quality Assessment: DVT Prophylaxis General: Alert, Oriented, Cooperative, No Acute Distress Lungs: Decreased Breath Sounds. No: Rales, Rhonchi, Rub, Wheezing Cardiovascular: Regular Rate, Regular Rhythm, No Murmurs GI/Abdominal Exam: Soft, Non-Tender, No Organomegaly, No Distention Extremities: Non-Tender, No Pedal Edema Skin: Warm, Dry, Intact - Problem List Review Problem List Initiated/Reviewed/Updated: Yes - Plan Plan:: ASSESSMENT AND PLAN - Acute influenza A with hypoxic respiratory failure - former smoker, no diagnosis of COPD but she does have some hyperinflation noted on chest x-ray. Feels better since yesterday with less shortness of breath and cough. Continues to require low level of supplemental oxygen to maintain adequate saturations. -Tamiflu -Nebs -Supplement oxygen -Symptomatic management -Sputum culture if able Acquired hypothyroidism - TSH is mildly decreased at this time but T4 is normal. -Continue supplement History of tobacco dependence - patient reports smoking approximately 1/4 - 1/2 half pack daily for 40 years. Currently using nicotine patch. -Continue nicotine patch Maintenance issues - - DVT prophylaxis - mechanical - GI prophylaxis - not indicated - Nutrition - regular diet Disposition - anticipate discharge home after the hospital stay Primary care physician - Cyndy HENAO
[2017-09-18] MEDS: Ibuprofen 600 MG Tab PO PRN (13:34)
[2017-09-18] MEDS: Latanoprost 0.005% Ophth Soln 2.5 ML Bottle EYEBOTH SCH (20:09)
[2017-09-19] MEDS: Benzonatate 100 MG Cap PO PRN ×2 (01:39→16:00)
[2017-09-19] MEDS: Albuterol 0.083% 2.5 MG/3 ML Neb Soln NEB PRN (01:50)
[2017-09-19] MEDS: Albuterol/Ipratropium 3.0-0.5 MG/3 ML Neb Soln NEB SCH ×3 (07:48→14:49)
[2017-09-19] MEDS: OPTH EYEBOTH SCH (08:19)
[2017-09-19] MEDS: COMBIGAN EYEBOTH SCH (08:19)
[2017-09-19] MEDS: Nicotine 14 MG/24 Hr Patch TRDERM SCH (08:19)
[2017-09-19] MEDS: Levothyroxine 100 MCG Tab PO SCH (08:19)
[2017-09-19] MEDS: Ibuprofen 600 MG Tab PO PRN (08:41)
[2017-09-19] MEDS ORDERED: Benzocaine/Cetylpyridinium/Menthol Lozenge MUCMEM PRN (08:50)
--- NOTE | 2017-09-19 13:34 | PCM.DCSUM1 ---
Discharge Summary - Hospital Course Brief History: Ms. Nunez is a 67-year-old woman who was admitted through the emergency department with pulmonary infiltrate, shortness of breath, hypoxia, and cough, secondary to influenza A. - Discharge Data Discharge Date: 09/19/17 Discharge Disposition: Home, Self-Care 01 Condition: Fair - Discharge Diagnosis/Problem(s) (1) Right lower lobe pneumonia SNOMED Code(s): 192566424 ICD Code: J18.1 - LOBAR PNEUMONIA, UNSPECIFIED ORGANISM Status: Acute Current Visit: Yes (2) Influenza A SNOMED Code(s): 625005257 ICD Code: J10.1 - FLU DUE TO OTH IDENT INFLUENZA VIRUS W OTH RESP MANIFEST Status: Acute Current Visit: Yes (3) Dehydration SNOMED Code(s): 59539988 ICD Code: E86.0 - DEHYDRATION Status: Acute Current Visit: Yes (4) Acute respiratory failure with hypoxia SNOMED Code(s): 70165874 ICD Code: J96.01 - ACUTE RESPIRATORY FAILURE WITH HYPOXIA Status: Acute Current Visit: Yes (5) Acquired hypothyroidism SNOMED Code(s): 465273372 ICD Code: E03.9 - HYPOTHYROIDISM, UNSPECIFIED Status: Acute Current Visit : Yes - Patient Summary/Data Hospital Course: Marisel presented to the emergency room on the day of admission with 2 days of progressive cough, fever and shortness of breath. Cough had been mostly nonproductive. She was short of breath with even minimal activity. She had not measured any fevers at home but had felt warm. She had a runny nose but no sore throat. She had diffuse myalgias and arthralgias. Some pleuritic type chest pain with coughing as well as some nausea but no vomiting. She had 2 sick contacts with very similar symptoms but they have not been tested for influenza. No orthopnea or lower extremity edema. She quit smoking 2 weeks prior to admission. Appetite is decreased but fluid intake has been stable. Workup in the emergency room was initiated after she presented to the walk-in clinic, was found to have oxygen saturations in the mid 70s and was sent to the emergency room. She was found to have hypoxic respiratory failure as well as influenza. On admission it was felt unlikely that there was a bacterial component current infection. She was given IV fluids for hydration, Tamiflu, Solu-Medrol, and nebulizer therapy. Antibiotic therapy was not initiated, because it was felt likely that the underlying infection and infiltrate were secondary to a viral component with the influenza A. She gradually improved over the next few days of hospitalization and was able to get off of the steroids. 5 day course of therapy with Tamiflu is completed prior to discharge. She continued to require supplemental oxygen and will be discharged home on 2 L/ m via nasal cannula. She was strongly encouraged to continue her smoking cessation and the likelihood of underlying COPD was reviewed with her. She was offered home care with home physical therapy and occupational therapy which she refused. Activity will be as tolerated and she will resume her usual diet. Follow-up appointment will be scheduled with her primary care provider within one week. - Patient Instructions Diet: Usual Diet as Tolerated Activity: As Tolerated Other/Special Instructions: Discharge home with home oxygen 2 L/m via nasal cannula. Please asked respiratory therapy to review appropriate inhaler use prior to discharge. Please schedule follow-up appointment with primary care provider within one week. - Discharge Plan Prescriptions/Med Rec: Ipratropium/Albuterol Sulfate [Combivent Respimat Inhal [place]] 2 puff IH Q4H PRN #1 aer.w.adap PRN Reason: Dyspnea Home Medications: Home Meds Brimonidine/Timolol [Combigan 0.2%/0.5% Ophth Soln] 1 drop EYEBOTH BID 09/14/17 [History] Latanoprost 2 drop EYEBOTH BEDTIME 09/14/17 [History] Levothyroxine Sodium [Levoxyl] 1 tab PO DAILY 09/14/17 [History] Ipratropium/Albuterol Sulfate [Combivent Respimat Inhal [place]] 2 puff IH Q4H PRN #1 aer.w.adap 09/19/17 [Rx] Referrals: Candelaria Stanford PA [Primary Care Provider] - - Discharge Summary/Plan Comment DC Time >30 min.: No - Patient Data Vitals - Most Recent: Last Vital Signs Temp 98.0 F 09/19/17 08:23 Pulse 60 09/19/17 10:47 Resp 20 09/19/17 08:23 BP 99/65 09/19/17 08:23 Pulse Ox 94 L 09/19/17 08:23 Weight - Most Recent: 126 lb 0.013 oz Med Orders - Current: Current Medications Acetaminophen (Tylenol) 650 mg PO Q4H PRN PRN Reason: Pain (Mild 1-3)/fever Last Admin: 09/17/17 08:37 Dose: 650 mg Albuterol (Proventil Neb Soln) 2.5 mg NEB Q4H PRN PRN Reason: Shortness Of Breath/wheezing Last Admin: 09/19/17 01:50 Dose: 2.5 mg Albuterol/Ipratropium (Duoneb 3.0-0.5 Mg/3 Ml) 3 ml NEB QIDRT [facility] Last Admin: 09/19/17 10:47 Dose: 3 ml Benzonatate (Tessalon Perles) 100 mg PO TID PRN PRN Reason: Cough Last Admin: 09/19/17 01:39 Dose: 100 mg Guaifenesin/Codeine Phosphate (Robitussin Ac) 10 ml PO Q4H PRN PRN Reason: Cough Ibuprofen (Motrin) 600 mg PO Q6H PRN PRN Reason: Pain/Fever Last Admin: 09/19/17 08:41 Dose: 300 mg Latanoprost (Xalatan 0.005% Ophth Soln) 0 ml EYEBOTH BEDTIME [facility] Last Admin: 09/18/17 20:09 Dose: 1 drop Levothyroxine Sodium (Synthroid) 100 mcg PO ACBREAKFAST [facility] Last Admin: 09/19/17 08:19 Dose: 100 mcg Nicotine (Habitrol) 14 mg TRDERM DAILY [facility] Last Admin: 09/19/17 08:19 Dose: Not Given Combigan 0.2/0.5% (OpthPt Own Med) 1 each EYEBOTH BID [facility] Last Admin: 09/19/17 08:19 Dose: 1 each Ondansetron HCl (Zofran Odt) 4 mg PO Q6H PRN PRN Reason: Nausea able to take PO Polyethylene Glycol (Miralax) 17 gm PO DAILY PRN PRN Reason: Constipation Discontinued Medications Acetaminophen (Tylenol) 650 mg PO NOW ONE Stop: 09/14/17 11:38 Last Admin: 09/14/17 11:54 Dose: 650 mg Albuterol (Proventil Neb Soln) 2.5 mg NEB ONETIME ONE Stop: 09/14/17 11:38 Last Admin: 09/14/17 11:54 Dose: 2.5 mg Benzocaine/Menthol (Cepacol Sore Throat) 1 lozenge MUCMEM ASDIRECTED PRN PRN Reason: Sore Throat Brimonidine Tartrate (Alphagan 0.2% Ophth Soln) 0 ml EYEBOTH BID [facility] Last Admin: 09/15/17 10:56 Dose: Not Given Sodium Chloride (Normal Saline) 1,000 mls @ 999 mls/hr IV ASDIRECTED [facility] Last Admin: 09/14/17 12:14 Dose: 999 mls/hr Sodium Chloride (Normal Saline) 1,000 mls @ 75 mls/hr IV ASDIRECTED [facility] Last Admin: 09/15/17 03:13 Dose: 75 mls/hr Methylprednisolone Sodium Succinate (Solu-Medrol) 125 mg IVPUSH ONETIME ONE Stop: 09/14/17 12:44 Last Admin: 09/14/17 12:57 Dose: 125 mg Methylprednisolone Sodium Succinate (Solu-Medrol) 62.5 mg IVPUSH Q8H [facility] Stop: 09/14/17 20:01 Last Admin: 09/14/17 20:09 Dose: 62.5 mg Oseltamivir Phosphate (Tamiflu) 75 mg PO ONETIME ONE Stop: 09/14/17 11:52 Last Admin: 09/14/17 11:56 Dose: 75 mg Oseltamivir Phosphate (Tamiflu) 75 mg PO BID [facility] Stop: 09/18/17 21:01 Last Admin: 09/18/17 20:11 Dose: 75 [facility] Last Admin: 09/17/17 15:56 Dose: 20 mg Timolol Maleate (Timoptic 0.5% Ophth Soln) 0 ml EYEBOTH BID [facility] Last Admin: 09/15/17 10:56 Dose: Not Given - Exam General: Reports: Alert, Oriented, Cooperative, No Acute Distress Lungs: Reports: Decreased Breath Sounds. Denies: Rales, Rhonchi, Wheezing Cardiovascular: Reports: Regular Rate, Regular Rhythm, No Murmurs GI/Abdominal Exam: Soft, Non-Tender, No Organomegaly, No Distention Extremities: Non-Tender, No Pedal Edema *Q Meaningful Use (DIS) - VTE *Q VTE Criteria *Q: - Stroke *Q Stroke Criteria *Q: - AMI *Q AMI Criteria *Q:
== END 2017-09-19 17:49 | disposition home or self-care (01) | DRG 193 ==
LOC: JP.ED 11:02 → JP.MS 12:44
PROVIDERS: ADMIT Internal Medicine; ATTEND Hospitalist
DX: J10.00 Influenza due to other identified influenza virus with unspecified type of pneumonia (principal); J96.01 Acute respiratory failure with hypoxia; J10.1 Influenza due to other identified influenza virus with other respiratory manifestations; Z87.891 Personal history of nicotine dependence; E03.9 Hypothyroidism, unspecified; E86.0 Dehydration; R09.02 Hypoxemia; R50.9 Fever, unspecified; R05 Cough
CPT/HCPCS: 36415; 71046 ×2; 80053; 83605; 84443; 85025; 87040 ×2; 87804 ×2; 94640; 99285; A9270 ×2; J7040; 80048; 84439; 85027; J2930; J7030; J7620

== ENCOUNTER 2019-07-27 13:07 | Emergency (ER) | payer MEDICAID, MEDICARE ==
[2019-07-27] MEDS ORDERED: HYDROmorphone 0.5 MG/0.5 ML Syringe IVPUSH ONE ×3 (13:35→14:29)
[2019-07-27] MEDS ORDERED: Sodium Chloride 0.9% 10 ML Syringe FLUSH PRN (13:42)
--- NOTE | 2019-07-27 13:43 | EDM.PDOC ---
ED HPI GENERAL MEDICAL PROBLEM - General Chief Complaint: Upper Extremity Injury/Pain Stated Complaint: FELL, R SHOULDER INJURY Time Seen by Provider: 07/27/19 13:37 Source of Information: Reports: Patient History Limitations: Reports: No Limitations - History of Present Illness INITIAL COMMENTS - FREE TEXT/NARRATIVE: pt fell on the ice and landed on her rt shoulder. She is not able to lift the arm. Pt is very uncomfortable. Onset: Today, Sudden Duration: Hour(s): Location: Reports: Upper Extremity, Right Associated Symptoms: Reports: No Other Symptoms Right Shoulder Pain Score (Numeric/FACES): 8 - Related Data Allergies Allergy/AdvReac Type Severity Reaction Status Date / Time No Known Allergies Allergy Verified 07/29/19 07:42 Home Meds: Home Meds Brimonidine/Timolol [Combigan 0.2%/0.5% Ophth Soln] 1 drop EYEBOTH BID 09/14/17 [History] Latanoprost 2 drop EYEBOTH BEDTIME 09/14/17 [History] Levothyroxine Sodium [Levoxyl] 100 mcg PO DAILY 09/14/17 [History] Acetaminophen/oxyCODONE [Percocet 325-5 MG] 1 tab PO Q6H PRN 07/28/19 [History] Ca Carb & Gluc/Mag Ox & Gluc [Calcium Magnesium Caplet] 1 tab PO DAILY 07/29/19 [History] Past Medical History HEENT History: Reports: None SOCIAL ECONOMIST History: Reports: Musculoskeletal History: Reports: Other (See Below) Other Musculoskeletal History: Kirosis Endocrine/Metabolic History: Reports: Hypothyroidism - Infectious Disease History Infectious Disease History: Reports: Chicken Pox, Measles, Mumps, Pertussis ( Whooping Cough) - Past Surgical History Oncologic Surgical History: Reports: Biopsy of Breast Social & Family History - Family History Cardiac: Reports: CAD Respiratory: Reports: COPD - Caffeine Use Caffeine Use: Reports: Coffee, Soda Review of Systems - Review of Systems Review Of Systems: See Below Constitutional: Reports: No Symptoms Eyes: Reports: No Symptoms Ears: Reports: No Symptoms Nose: Reports: No Symptoms Mouth/Throat: Reports: No Symptoms Cardiovascular: Reports: Lightheadedness, Other (slow heart rate. ) GI/Abdominal: Reports: No Symptoms Genitourinary: Reports: No Symptoms Musculoskeletal: Reports: No Symptoms Skin: Reports: No Symptoms ED EXAM, GENERAL - Physical Exam Exam: See Below Free Text/Narrative:: pt slipped on the ice and she landed on the rt shoulder. She is very uncomfortable. She is not able to move the arm. Exam Limited By: No Limitations General Appearance: Alert, Anxious, Moderate Distress Ears: Normal TMs Nose: Normal Inspection Throat/Mouth: Normal Inspection Head: Atraumatic Neck: Normal Inspection Respiratory/Chest: No Respiratory Distress Cardiovascular: Regular Rate, Rhythm, Bradycardia, Other (pt normally has a slow heart rate. ) GI/Abdominal: Non-Tender Rectal (Female) Exam: Deferred Extremities: Other (pt is very tender in the rt shoulder, upper humerus. ) Neurological: Alert, Oriented, Normal Cognition Course - Vital Signs Last Recorded V/S: Last Vital Signs Temp 35.0 C L 07/27/19 13:57 Pulse 91 07/27/19 14:50 Resp 14 07/27/19 14:50 BP 169/106 H 07/27/19 14:50 Pulse Ox 99 07/27/19 14:50 - Orders/Labs/Meds Meds: Medications Discontinued Medications Generic Name Dose Route Start Last Admin Trade Name Freq PRN Reason Stop Dose Admin Hydromorphone HCl 0.5 mg 07/27/19 13:35 Dilaudid IVPUSH 07/27/19 13:36 ONETIME ONE Hydromorphone HCl 0.5 mg 07/27/19 13:43 07/27/19 13:50 Dilaudid IVPUSH 07/27/19 13:44 0.5 mg ONETIME ONE Administration Hydromorphone HCl 0.5 mg 07/27/19 14:29 07/27/19 14:34 Dilaudid IVPUSH 07/27/19 14:30 0.5 mg ONETIME ONE Administration Sodium Chloride 1,000 mls @ 250 mls/hr 07/27/19 13:45 07/27/19 14:33 Normal Saline IV 250 mls/hr ASDIRECTED RENETTA Administration Oxycodone/Acetaminophen 1 tab 07/27/19 14:53 07/27/19 15:05 Percocet 325-5 Mg PO 07/27/19 14:54 1 tab ONETIME ONE Administration Sodium Chloride 10 ml 07/27/19 13:42 07/27/19 14:34 Saline Flush FLUSH 10 ml ASDIRECTED PRN Administration Keep Vein Open - Re-Assessments/Exams Free Text/Narrative Re-Assessment/Exam: 07/27/19 15:12 pt had a xray of the shoulder which shows a fracture of the head of the humerus with some impaction. There is subluxation of the ball out of the fossa. Dr Cruz looked at the xrays and advised placing her in a imbolizer and pain meds and then he would see her tomorrow. Departure - Departure Time of Disposition: 15:23 Disposition: Home, Self-Care 01 Condition: Fair Clinical Impression: Fracture of humerus head - Discharge Information Instructions: Humerus Fracture Treated With Immobilization, [id number] Referrals: PCP,None [Primary Care Provider] - Forms: ED Department Discharge Care Plan Goals: cool pack to the area, appt with Dr Cruz tomorrow, percocet 5/325 q6h prn for pain, #12 Sepsis Event Note - Focused Exam Date Exam was Performed: 07/29/19 Time Exam was Performed: 07:45
[2019-07-27] MEDS ORDERED: Sodium Chloride 0.9% 1,000 ML IV SCH (13:45)
[2019-07-27] MEDS ORDERED: Acetaminophen/oxyCODONE 325-5 MG Tab PO ONE (14:53)
--- NOTE | 2019-07-27 15:09 | CR ---
Shoulder Comp Rt CLINICAL HISTORY: Pain, fall FINDINGS: There is a comminuted displaced fracture of the proximal humerus with some glenohumeral dislocation and rotation. Impression: Comminuted displaced fracture of the proximal humerus with glenohumeral dislocation or laxity
== END 2019-07-27 15:41 | disposition home or self-care (01) ==
LOC: JP.ED 13:07
DX: S42.201A Unspecified fracture of upper end of right humerus, initial encounter for closed fracture (principal); Z79.899 Other long term (current) drug therapy; E03.9 Hypothyroidism, unspecified; W00.0XXA Fall on same level due to ice and snow, initial encounter
CPT/HCPCS: 73030; 93005; 93010; 96361; 96374; 96376; 99283; 99284; A9270; J1170; J7030

== ENCOUNTER 2019-07-29 07:15 | Day surgery (SDC) | payer MEDICARE ==
[2019-07-29] MEDS ORDERED: Lactated Ringers 1,000 ML IV SCH (07:45)
[2019-07-29] MEDS ORDERED: ceFAZolin 2 GM in Premix Bag 1 BAG IV ONE (07:45)
[2019-07-29] MEDS ORDERED: Nozin Nasal Sanitizer NASBOTH ONE (07:45)
[2019-07-29] MEDS ORDERED: Propofol 200 MG/20 ML SDV ONE (08:35)
[2019-07-29] MEDS ORDERED: Neostigmine Methylsulfate 1 MG/ML 5 ML Syringe ONE (08:35)
[2019-07-29] MEDS ORDERED: Succinylcholine 200 MG/10 ML MDV ONE (08:35)
[2019-07-29] MEDS ORDERED: Rocuronium 50 MG/5 ML Vial ONE (08:35)
[2019-07-29] MEDS ORDERED: Glycopyrrolate 0.2 MG/ML 5 ML MDV ONE (08:35)
[2019-07-29] MEDS ORDERED: Dexamethasone 4 MG/ML SDV ONE (08:35)
[2019-07-29] MEDS ORDERED: Ondansetron 4 MG/2 ML SDV ONE (08:35)
[2019-07-29] MEDS ORDERED: fentaNYL 250 MCG/5 ML SDV ONE (08:37)
[2019-07-29] MEDS ORDERED: Bupivacaine 0.5% 30 ML SDV ONE ×2 (09:27→10:20)
[2019-07-29] MEDS ORDERED: Bupivacaine 0.5% 50 ML MDV ONE (10:20)
[2019-07-29] MEDS ORDERED: ePHEDrine 50 MG/ML SDV ONE (11:03)
--- NOTE | 2019-08-24 11:32 | OR ---
DATE OF PROCEDURE: 07/29/2019 SURGEON: Archie Cruz MD PREOPERATIVE DIAGNOSIS: Right proximal humerus fracture. POSTOPERATIVE DIAGNOSIS: Right proximal humerus fracture, 3 part. PROCEDURE: Open reduction and internal fixation of right proximal humerus. ANESTHESIA: Interscalene block with general. INDICATIONS: Marisel is a 69-year-old female, who sustained a fall resulting in a fracture of her right proximal humerus. X-rays reveal a displaced 3-part fracture of the humeral head and neck. She was brought to the operating room for open reduction and internal fixation. Risks, benefits, and potential complications of the procedure were discussed. She agrees with the plan. DESCRIPTION OF PROCEDURE: After adequate anesthesia was obtained, the patient was placed in a modified beach-chair position. The right arm and shoulder were then prepped and draped in a sterile fashion. Incision was made over the lateral aspect of the arm starting at the acromion and carried distally. This was carried down through the subcutaneous tissues and hemostasis obtained with electrocautery. The deltoid was split in line with its fibers and a self-retaining retractor was placed. Axillary nerve was identified and dissection then carried distal to this through the muscle. Self-retaining retractors were placed. The fracture was identified. An elevator was placed into the fracture, elevating the humeral head fragment. The shaft fragment was then pulled laterally. A Synthes proximal humeral plate was then slid beneath the axillary nerve, which was protected at all times. FiberWire suture was placed into the supraspinatus tendon near its attachment, which was intact. A second suture was placed into the subscapularis tendon near its insertion on the lesser tuberosity. These sutures were then placed through the smaller holes in the plate. Position of the plate was evaluated using fluoroscopy and a K-wire was used to temporarily stabilize it. Cortical screws were then placed into the shaft fragment pulling the shaft against the plate, further reducing the fracture. Good purchase was obtained with all 3 screws. Sutures through the rotator cuff tendons were then tied down onto the plate assisting reduction of the tuberosity fragment. Locking screws were then placed into the humeral head. Position of all screws was confirmed using fluoroscopy. Steinmann pin was removed. The arm was taken through internal and external rotation further evaluating placement of the screws and plate. Fixation was stable. The wound was then irrigated. Deltoid was repaired in a [id number] fashion with 0 Vicryl. Skin was closed with 2-0 Vicryl and a running 3-0 Monocryl. Steri-Strips were applied. Sterile dressing was then placed. The patient tolerated the procedure well. There were no complications. She was taken from the operating room in stable condition. Archie Cruz MD /[id number] MTDD
== END 2019-07-29 16:00 | disposition home or self-care (01) ==
LOC: JP.SDS 07:15
PROVIDERS: ATTEND Specialist
DX: S42.291A Other displaced fracture of upper end of right humerus, initial encounter for closed fracture (principal); J44.9 Chronic obstructive pulmonary disease, unspecified; E03.9 Hypothyroidism, unspecified; W00.0XXA Fall on same level due to ice and snow, initial encounter; Z79.899 Other long term (current) drug therapy
CPT/HCPCS: 23615; A9270; C1713; C1776; J0330; J0690; J1100; J2405; J2704; J2710; J3010; J3490; J7120

== ENCOUNTER 2021-08-07 17:32 | Emergency (ER) | payer MEDICARE ==
[2021-08-07] MEDS ORDERED: Sodium Chloride 0.9% 10 ML Syringe FLUSH PRN (18:11)
[2021-08-07 18:51] LABS: CORONAVIRUS COVID-19 NAA NEGATIVE (NEGATIVE)
[2021-08-07] MEDS ORDERED: Aspirin 81 MG Tab.Chew PO ONE (19:23)
[2021-08-07] MEDS ORDERED: Enoxaparin 60 MG/0.6 ML Syringe SUBCUT ONE (19:47)
== END 2021-08-07 21:19 ==
LOC: JP.ED 17:32
DX: I21.4 Non-ST elevation (NSTEMI) myocardial infarction (principal); I11.0 Hypertensive heart disease with heart failure; I50.9 Heart failure, unspecified; E86.0 Dehydration; E03.9 Hypothyroidism, unspecified; E87.1 Hypo-osmolality and hyponatremia; R09.02 Hypoxemia; F17.210 Nicotine dependence, cigarettes, uncomplicated; Z79.899 Other long term (current) drug therapy; Z20.822 Contact with and (suspected) exposure to COVID-19
CPT/HCPCS: 0241U; 36415; 71045; 80053; 82550; 82728; 83735; 83880; 84484; 85025; 86140; 87040; 93005; 96372; 99285; A9270; J1650

== ENCOUNTER 2021-08-26 20:06 | Emergency (ER) | payer MEDICARE ==
[2021-08-26 22:07] LABS: CORONAVIRUS COVID-19 NAA NEGATIVE (NEGATIVE)
[2021-08-26] MEDS ORDERED: Iopamidol 755 Mg/ML 100 ML Bottle IV STA (23:21)
[2021-08-26] MEDS ORDERED: Sodium Chloride 0.9% 100 ML IV STA (23:22)
[2021-08-26] MEDS ORDERED: HYDROmorphone 0.5 MG/0.5 ML Syringe IVPUSH ONE (23:56)
[2021-08-27] MEDS ORDERED: LORazepam 2 MG/ML SDV IVPUSH ONE (00:52)
[2021-08-27] MEDS ORDERED: Dexamethasone 4 MG/ML SDV IVPUSH STA (00:53)
[2021-08-27] MEDS ORDERED: HYDROmorphone 0.5 MG/0.5 ML Syringe IVPUSH ONE (01:05)
== END 2021-08-27 01:25 | disposition home or self-care (01) ==
LOC: JP.ED 20:06
DX: I30.0 Acute nonspecific idiopathic pericarditis (principal); J44.9 Chronic obstructive pulmonary disease, unspecified; E03.9 Hypothyroidism, unspecified; E11.9 Type 2 diabetes mellitus without complications; Z79.899 Other long term (current) drug therapy; Z87.891 Personal history of nicotine dependence; Z20.822 Contact with and (suspected) exposure to COVID-19
CPT/HCPCS: 0241U; 36415; 71275; 80053; 82550; 84484; 85025; 85379; 85651; 86140; 93005; 93010; 96374; 96376; 99284; 99285-25; J1170; Q9967